=== PATIENT | male | born 1975 | race Two or more races ===

== ENCOUNTER 2023-08-22 08:32 | Emergency (ER) | payer OTHER ==
[2023-08-22 08:40] VITALS: BP 141/84; PULSE 74; RESP 16; TEMP 98.7; BMI 27.4
[2023-08-22] MEDS ORDERED: DEXAMETHASONE SOD PHOSPHATE 4 MG/1 ML VIAL ONE (09:51)
[2023-08-22] MEDS: DEXAMETHASONE SOD PHOSPHATE 4 MG/1 ML VIAL IM ONE (09:55)
== END 2023-08-22 10:36 | disposition home or self-care (01) ==
LOC: JER 08:32 → JERFT 08:32
DX: R22.1 Localized swelling, mass and lump, neck (principal); T78.1XXA Other adverse food reactions, not elsewhere classified, initial encounter
CPT/HCPCS: 99284-25